=== PATIENT | male | born 1945 | race Two or more races ===

== ENCOUNTER 2020-01-12 13:13 | Inpatient (IN) | payer OTHER ==
[~2020-01-12] VITALS: Ht 172.7 cm; Wt 74.8 kg
[2020-01-16] MEDS ORDERED: ELIQUIS2.5 MG PO (07:37)
[2020-01-16] MEDS ORDERED: PERCOCET 5-3251 EACH PO (07:37)
== END 2020-01-16 13:21 | DRG 482 ==
LOC: ER 13:13 → SURH 17:25
PROVIDERS: ADMIT Orthopaedic Surgery; ATTEND Orthopaedic Surgery
PROC: 0QS736Z Reposition Left Upper Femur with Intramedullary Internal Fixation Device, Percutaneous Approach (ICD-10-PCS; principal; 2020-01-13 16:00)
DX: S72.142A Displaced intertrochanteric fracture of left femur, initial encounter for closed fracture (principal); W18.30XA Fall on same level, unspecified, initial encounter; Z20.828 Contact with and (suspected) exposure to other viral communicable diseases; Z96.652 Presence of left artificial knee joint

== ENCOUNTER 2022-11-17 11:46 | Emergency (ER) | payer OTHER ==
[~2022-11-17] VITALS: Ht 172.7 cm; Wt 63.5 kg
[~2022-11-17 11:46] MED LIST: ELIQUIS2.5 MG PO; PERCOCET 5-3251 EACH PO
== END 2022-11-17 15:13 | disposition home or self-care (01) ==
LOC: ER 11:46
DX: R07.89 Other chest pain (principal)

== ENCOUNTER 2025-05-31 07:57 | Emergency (ER) | payer OTHER ==
[~2025-05-31] VITALS: Ht 170.2 cm; Wt 61.2 kg
[2025-05-31 08:05] VITALS: BP 155/81; O2SAT 100
[2025-05-31] MEDS ORDERED: KETOROLAC TROMETHAMINE 30 MG VIAL IM ONE (09:30)
[2025-05-31] MEDS ORDERED: CEFTRIAXONE SODIUM 1,000 MG VIAL IM ONE (09:30)
[2025-05-31] MEDS ORDERED: CEFTRIAXONE SODIUM 1,000 MG VIAL ONE (09:35)
[2025-05-31] MEDS ORDERED: KETOROLAC TROMETHAMINE 30 MG VIAL ONE (09:35)
[2025-05-31] MEDS ORDERED: CIPRO500 MG PO (10:03)
== END 2025-05-31 10:37 | disposition home or self-care (01) ==
LOC: ER 07:57
DX: L02.212 Cutaneous abscess of back [any part, except buttock and flank] (principal)